=== PATIENT | female | born 1990 | race Caucasian/White ===

== ENCOUNTER 2017-09-08 18:55 | Emergency (ER) | payer SELFPAY ==
[~2017-09-08] VITALS: Ht 167.6 cm; Wt 68.0 kg
[~2017-09-08 18:55] MED LIST: ACET325T11 PO; IBUP600 PO; PERI8.6T PO; PRENTAB50 PO; TUMS500C CHEW
[2017-09-08 18:57] VITALS: BP 130/68; PULSE 103; RESP 16; TEMP 99.2; O2SAT 98
--- NOTE | 2017-09-08 21:08 | PD ---
HPI Chief Complaint: Back/ Neck Pain or Injury Time Seen by Provider: 20:40 Travel History International Travel<30 days: No Contact w/Intl Traveler<30days: No Traveled to known affect area: No History of Present Illness HPI 27-year-old female believe she is approximately 15 weeks , LMP in late April, here for evaluation of lower back pain. Patient reports that the pain started this morning after waking up, described as cramping, radiates to her lower abdomen/suprapubic region. She states the pain is constant, no modifying factors. Currently the pain is 6 out of 10 and is improved from earlier today. She denies fevers or chills. She has had a few episodes of nausea and vomiting during her . No urinary symptoms. No vaginal bleeding or discharge. She has not yet seen an AUDIT DIRECTOR physician and has an appointment for October 01. She has not yet had an ultrasound to confirm an IUP. She denies trauma. No history of IVDU. [facility] Past Medical History Medical History: Denies Significant Hx Diminished Hearing: No Tetanus Vaccination: Unknown Influenza Vaccination: Yes ?: LMP: 05/08/2017 15 weeks Past Surgical History Surgical History: No Previous Surgery Social History Alcohol Use: No Tobacco Use: Yes (1/2 pack per day) Substance Use: No Allergies-Medications (Allergen,Severity, Reaction): Coded Allergies: naproxen (Unverified Allergy, Severe, SHORTNESS OF BREATH, 09/08/17) Reported Meds & Prescriptions Reported Meds & Active Scripts Active No Active Prescriptions or Reported Medications Review of Systems Except as stated in HPI: all other systems reviewed are Neg Physical Exam Narrative GENERAL: Well-developed, well-nourished, comfortable, no apparent distress. SKIN: Focused skin assessment warm/dry. No rash. HEAD: Atraumatic. Normocephalic. EYES: Pupils equal and round. No scleral icterus. No injection or drainage. ENT: Mucous membranes pink and moist. CARDIOVASCULAR: Regular rate and rhythm. No murmur appreciated. RESPIRATORY: No accessory muscle use. Clear to auscultation. Breath sounds equal bilaterally. GASTROINTESTINAL: Abdomen soft, gravid uterus palpable below umbilicus. Mild suprapubic tenderness. Rest of abdomen is soft and nontender. No peritoneal signs. MUSCULOSKELETAL: No obvious deformities. No clubbing. No cyanosis. No edema. Mild bilateral CVA tenderness. NEUROLOGICAL: Awake and alert. No obvious cranial nerve deficits. Motor grossly within normal limits. Normal speech. PSYCHIATRIC: Appropriate mood and affect; insight and judgment normal. Data Data Last Documented VS Vital Signs Date Time Temp Pulse Resp B/P (MAP) Pulse Ox O2 Delivery O2 Flow Rate FiO2 09/08/17 18:57 99.2 103 16 130/68 (88) 98 Orders Orders Urinalysis - C+S If Indicated (09/08/17 21:04) Urine Culture (09/08/17 21:13) Nitrofurantoin Monohyd Macrocr (Macrobid (09/08/17 22:15) Labs Laboratory Tests Test 09/08/17 21:13 Urine Color YELLOW Urine Turbidity HAZY Urine pH 6.0 Urine Specific [place] 1.022 Urine Protein TRACE mg/dL Urine Glucose (UA) NEG mg/dL Urine Ketones NEG mg/dL Urine Occult Blood NEG Urine Nitrite NEG Urine Bilirubin NEG Urine Urobilinogen LESS THAN 2.0 MG/DL Urine Leukocyte Esterase LARGE Urine RBC 2 /hpf Urine WBC 30 /hpf Urine Squamous Epithelial Cells 14 /hpf Urine Calcium Oxalate Crystals OCC /hpf Urine Bacteria OCC /hpf Urine Mucus FEW /lpf Microscopic Urinalysis Comment CULTURE INDICATED MDM Medical Decision Making Medical Screen Exam Complete: Yes Emergency Medical Condition: Yes Differential Diagnosis UTI, pyelonephritis, nephrolithiasis, hydronephrosis, musculoskeletal pain, round ligament pain Narrative Course Bedside transabdominal ultrasound was performed by me and shows a large IUP with a heart rate of 140 bpm. I also evaluated the patient's kidneys using the curvilinear ultrasound probe and there are no signs of hydronephrosis. Vital signs reviewed. UA: Hazy, large the site esterase, 30 WBCs, occasional calcium oxalate crystals, occasional bacteria, few mucus. Patient was made aware of UA findings. She is very comfortable. At this point my plan is to start her on Macrobid for UTI and . She has an AUDIT DIRECTOR appointment for October 01 which I advised she keep. She is stable for discharge home with outpatient follow-up. She was informed on when to return to the emergency department patient verbalizes understanding and agreement with plan. Procedures Procedure Narrative Bedside ultrasound: Using the curvilinear ultrasound probe, a bedside transabdominal ultrasound was performed by me and shows a large IUP with a heart rate of 140 bpm. The patient's kidneys were also evaluated using the curvilinear ultrasound probe and there are no signs of hydronephrosis. Diagnosis Primary Impression: Qualified Codes: Z34.90 - Encounter for supervision of normal , unspecified, unspecified trimester Additional Impression: UTI in Qualified Codes: O23.42 - Unspecified infection of urinary tract in , second trimester Referrals: Position Classifier Additional Instructions: Follow-up with your AUDIT DIRECTOR physician as scheduled. Take antibiotic as prescribed. Return to the emergency department for worsening symptoms or any other concerns. Scripts Nitrofurantoin Monohydrate Macrocrystals (Macrobid) 100 Mg Cap 100 MG PO BID for Infection for 7 Days, #14 CAP 0 Refills Prov: Trevin Johnson MD 09/08/17 Disposition: 01 DISCHARGE HOME Condition: Stable Trevin Johnson MD Sep 08, 2017 21:08
[2017-09-08 22:05] LABS: BACTERIA, URINE OCC /hpf; BILIRUBIN, URINE NEG (NEG); BLOOD, URINE NEG (NEG); CALCIUM OXALATE CRYSTALS,URINE OCC /hpf; GLUCOSE,URINE NEG (NEG); KETONE, URINE NEG (NEG); MUCUS URINE FEW /lpf (OCC); NITRITE,URINE NEG (NEG); SQUAMOUS EPITHELIAL CELL URINE 14 /hpf (0-5); URINE COLOR YELLOW (YELLW/STRAW); URINE LEUKOCYTE ESTERASE LARGE (NEG)
[2017-09-08] MEDS ORDERED: NITROFURANTOIN MONOHYD MACROCR 100 MG CAP PO ONE (22:15)
[2017-09-08] MEDS ORDERED: MACR100C2 PO (22:19)
== END 2017-09-08 22:32 | disposition home or self-care (01) ==
LOC: NEPD 18:55
DX: O23.42 Unspecified infection of urinary tract in pregnancy, second trimester (principal); B96.89 Other specified bacterial agents as the cause of diseases classified elsewhere; O99.332 Smoking (tobacco) complicating pregnancy, second trimester; Z3A.15 15 weeks gestation of pregnancy; Z88.6 Allergy status to analgesic agent
CPT/HCPCS: 81001; 87086; 99284